=== PATIENT | female | born 1950 | race Caucasian/White ===

== ENCOUNTER → 2016-09-05 | Outpatient (CLI) | payer MEDICARE, MEDICAID | END | disposition home or self-care (01) | LOC: PETCFH 08:53 | PROVIDERS: ATTEND Internal Medicine Hematology & Oncology | DX: C88.4 Extranodal marginal zone B-cell lymphoma of mucosa-associated lymphoid tissue [MALT-lymphoma] (principal) | CPT/HCPCS: 78815; A9552 ==

== ENCOUNTER → 2017-03-06 | Outpatient (CLI) | payer MEDICARE, MEDICAID ==
[~2017-03-06] MED LIST: OMNIPAQUE 350 MG/ML, 150 ML BOTTLE ONE
== END | disposition home or self-care (01) ==
LOC: CFH 11:04
PROVIDERS: ATTEND Internal Medicine Hematology & Oncology
DX: C88.4 Extranodal marginal zone B-cell lymphoma of mucosa-associated lymphoid tissue [MALT-lymphoma] (principal); J98.4 Other disorders of lung; M51.36 Other intervertebral disc degeneration, lumbar region; J32.0 Chronic maxillary sinusitis
CPT/HCPCS: 70487; 71260; 74177; Q9967

== ENCOUNTER → 2017-04-23 | Outpatient (CLI) | payer MEDICARE, MEDICAID | END | disposition home or self-care (01) | LOC: PETCFH 07:33 | PROVIDERS: ATTEND Ophthalmology | DX: C85.91 Non-Hodgkin lymphoma, unspecified, lymph nodes of head, face, and neck (principal) | CPT/HCPCS: 78815; A9552 ==

== ENCOUNTER → 2017-04-29 | Outpatient (CLI) | payer MEDICARE, MEDICAID ==
[~2017-04-29] MED LIST changes: +GADOBUTROL 7.5 MMOL/7.5 ML PFS ONE; -OMNIPAQUE 350 MG/ML, 150 ML BOTTLE ONE
== END | disposition home or self-care (01) ==
LOC: CFH 07:42
PROVIDERS: ATTEND Ophthalmology
DX: C85.91 Non-Hodgkin lymphoma, unspecified, lymph nodes of head, face, and neck (principal); J34.89 Other specified disorders of nose and nasal sinuses
CPT/HCPCS: 70543; A9585

== ENCOUNTER → 2017-12-02 | Outpatient (CLI) | payer MEDICARE, MEDICAID ==
[~2017-12-02] MED LIST changes: -GADOBUTROL 7.5 MMOL/7.5 ML PFS ONE; +OMNIPAQUE 350 MG/ML, 150 ML BOTTLE ONE
== END | disposition home or self-care (01) ==
LOC: CFH 07:42
PROVIDERS: ATTEND Internal Medicine Hematology & Oncology
DX: C88.4 Extranodal marginal zone B-cell lymphoma of mucosa-associated lymphoid tissue [MALT-lymphoma] (principal); I70.0 Atherosclerosis of aorta; J43.9 Emphysema, unspecified; K42.9 Umbilical hernia without obstruction or gangrene
CPT/HCPCS: 70487; 71260; 74177; Q9967

== ENCOUNTER 2018-11-23 11:08 | Outpatient (CLI) | payer MEDICARE, MEDICAID ==
[2018-11-23] MEDS ORDERED: OMNIPAQUE 350 MG/ML, 150 ML BOTTLE ONE (15:13)
== END 2018-11-23 23:59 | disposition home or self-care (01) ==
LOC: CFH 11:08
PROVIDERS: ATTEND Internal Medicine Hematology & Oncology
DX: C88.4 Extranodal marginal zone B-cell lymphoma of mucosa-associated lymphoid tissue [MALT-lymphoma] (principal); M47.896 Other spondylosis, lumbar region
CPT/HCPCS: 70487; 71260; 74177; Q9967

== ENCOUNTER → 2019-07-05 | Outpatient (CLI) | payer MEDICARE, MEDICAID | END | disposition home or self-care (01) | LOC: RAD 15:34 | PROVIDERS: ATTEND Internal Medicine Hematology & Oncology | DX: C88.4 Extranodal marginal zone B-cell lymphoma of mucosa-associated lymphoid tissue [MALT-lymphoma] (principal); D84.9 Immunodeficiency, unspecified; Z79.899 Other long term (current) drug therapy | CPT/HCPCS: 70543; 70553 ==

== ENCOUNTER → 2019-08-05 | Outpatient (CLI) | payer MEDICARE, MEDICAID | END | disposition home or self-care (01) | LOC: PETCFH 09:35 | PROVIDERS: ATTEND Internal Medicine Hematology & Oncology | DX: C88.4 Extranodal marginal zone B-cell lymphoma of mucosa-associated lymphoid tissue [MALT-lymphoma] (principal); R20.2 Paresthesia of skin | CPT/HCPCS: 78815; A9552 ==